=== PATIENT | male | born 1960 | race Caucasian/White ===

== ENCOUNTER 2018-10-04 04:30 | Emergency (ER) | payer BC, OTHER ==
[2018-10-04] MEDS ORDERED: Lidocaine Viscous Sol 2% 15 ml UD Cup ONE (04:56)
[2018-10-04] MEDS ORDERED: Mag-Al 1200 mg/1200 mg/30 ML UDCUP ONE (04:56)
[2018-10-04 05:32] LABS: #Basophils 0.1 thou/uL (0.0-0.2); #Eosinphils 0.2 thou/uL (0.0-0.7); #Lymphocytes 3.6 thou/uL (1.20-3.40); #Monocytes 0.9 thou/uL (0.11-0.59); %Basophils 0.7 % (0.0-1.0); %Eosinophils 1.7 % (0.0-10.0); %Lymphocytes 30.7 % (21.0-51.0); %Monocytes 7.6 % (0.0-10.0); %Neutrophils 59.3 % (42.0-75.0); Hemoglobin 13.7 g/dL (14.0-18.0); Mean Corpuscular HGB CONC 33.7 g/dL (32.0-36.0); Mean Corpuscular Hemoglobin 30.5 pg (27.0-31.0); Mean Corpuscular Volume 90.6 fL (78.0-98.0); Platelet Count 292 thou/uL (130-400); RBC Distribution Width 11.8 % (11.5-14.5); Red Blood Cell (RBC) Count 4.49 mill/uL (4.70-6.10); White Blood Cell (WBC) Count 11.8 thou/uL (4.8-10.8)
[2018-10-04 05:56] LABS: ALT (SGPT) 16 U/L (8-55); AST (SGOT) 15 U/L (5-34); Albumin 3.8 g/dL (3.5-5.0); Alkaline Phosphatase 69 U/L (40-150); Anion Gap 16 mmol/L (10-20); BUN (Urea Nitrogen) 17 mg/dL (8.4-25.7); Bilirubin, Total 0.3 mg/dL (0.2-1.2); CK (CPK) 199 U/L (30-200); Calc. Creatinine Clearance 0 mL/min (70-130); Calcium 9.4 mg/dL (7.8-10.44); Carbon Dioxide 21 mmol/L (22-29); Chloride 106 mmol/L (98-107); Estimated GFR-MDRD 78; Globulin 2.9 g/dL (2.4-3.5); Glucose 126 mg/dL (70-105); Potassium 4.6 mmol/L (3.5-5.1); Protein, Total 6.7 g/dL (6.0-8.3); Sodium 138 mmol/L (136-145)
[2018-10-04] MEDS ORDERED: Sucralfate 1 GM/10 ML UDCUP ONE (06:25)
--- NOTE | 2018-10-04 08:02 | RAD ---
EXAM: Chest one view: HISTORY: Chest pain for 2 days with worsening COMPARISON: 02/25/2010 FINDINGS: Heart size: Within normal limits. Lungs: Clear of acute process. No evidence for pneumonia, pleural effusion, acute edema, or pneumothorax, or other significant acute process. IMPRESSION: No significant acute intrathoracic disease. Stable chest.
--- NOTE | 2018-10-06 01:07 | EKG ---
Test Reason : CHEST PAIN Blood Pressure : / mmHG Vent. Rate : 072 BPM Atrial Rate : 072 BPM P-R Int : 144 ms QRS Dur : 142 ms QT Int : 390 ms P-R-T Axes : 015 014 -19 degrees QTc Int : 427 ms Normal sinus rhythm Non-specific intra-ventricular conduction block T wave abnormality, consider inferior ischemia Abnormal ECG Confirmed by STACY KING [id number]), metropolitan editor MARICRUZ LINO ([id number] on 10/06/2018 1:07:02 AM Referred By: Confirmed By:STACY KING
== END 2018-10-04 06:28 | disposition home or self-care (01) ==
LOC: ERS 04:30
DX: R07.89 Other chest pain (principal); E11.9 Type 2 diabetes mellitus without complications; I10 Essential (primary) hypertension; Z79.84 Long term (current) use of oral hypoglycemic drugs; Z79.899 Other long term (current) drug therapy
CPT/HCPCS: 36415; 71045; 80053; 82550; 84484; 85025; 93005

== ENCOUNTER 2019-04-10 15:51 | Outpatient (CLI) | payer BC ==
[2019-04-10 16:49] LABS: #Basophils 0.1 thou/uL (0.0-0.2); #Eosinphils 0.2 thou/uL (0.0-0.7); #Lymphocytes 4.5 thou/uL (1.20-3.40); %Eosinophils 1.7 % (0.0-10.0); %Lymphocytes 38.1 % (21.0-51.0); %Monocytes 8.3 % (0.0-10.0); Hemoglobin 15.7 g/dL (14.0-18.0); Mean Corpuscular HGB CONC 33.7 g/dL (32.0-36.0); Mean Corpuscular Hemoglobin 30.2 pg (27.0-31.0); Mean Corpuscular Volume 89.5 fL (78.0-98.0); Mean Platelet Volume 7.2 fL (7.4-10.4); Platelet Count 329 thou/uL (130-400); RBC Distribution Width 11.9 % (11.5-14.5); Red Blood Cell (RBC) Count 5.21 mill/uL (4.70-6.10); White Blood Cell (WBC) Count 11.8 thou/uL (4.8-10.8)
[2019-04-10 17:14] LABS: ALT (SGPT) 19 U/L (8-55); AST (SGOT) 12 U/L (5-34); Albumin 4.5 g/dL (3.5-5.0); Alkaline Phosphatase 78 U/L (40-110); Anion Gap 13 mmol/L (10-20); BUN (Urea Nitrogen) 13 mg/dL (8.4-25.7); Bilirubin, Total 0.5 mg/dL (0.2-1.2); Calc. Creatinine Clearance 0 mL/min (70-130); Calcium 9.8 mg/dL (7.8-10.44); Carbon Dioxide 25 mmol/L (22-29); Chloride 102 mmol/L (98-107); Estimated GFR-MDRD 80; Globulin 3.1 g/dL (2.4-3.5); Glucose 136 mg/dL (70-105); Potassium 4.3 mmol/L (3.5-5.1); Protein, Total 7.6 g/dL (6.0-8.3); Sodium 136 mmol/L (136-145)
== END 2019-04-10 15:52 | disposition home or self-care (01) ==
LOC: LABBT 15:51
PROVIDERS: ATTEND Surgery
DX: Z01.818 Encounter for other preprocedural examination (principal); K42.9 Umbilical hernia without obstruction or gangrene
CPT/HCPCS: 80053; 85025; 93005; 93010

== ENCOUNTER 2019-04-18 05:33 | Day surgery (SDC) | payer BC ==
[2019-04-10 16:08] VITALS: BMI 34.1
[2019-04-18] MEDS ORDERED: Bupivacaine PF 0.5% 30 ML VIAL ONE (06:50)
[2019-04-18] MEDS ORDERED: Lidocaine 1% w/Epinephrine 1:100K 20 ML VIAL ONE (06:50)
[2019-04-18] MEDS ORDERED: Fentanyl 100 MCG/2 ML VIAL ONE (07:42)
[2019-04-18] MEDS ORDERED: Rocuronium Bromide 10 MG/ML (10ML VIAL) ONE (12:34)
[2019-04-18] MEDS ORDERED: Glycopyrrolate 0.2 MG/ML 5 ML SYRINGE ONE (12:34)
[2019-04-18] MEDS ORDERED: Lidocaine 1% PF 5 ML VIAL ONE (12:34)
[2019-04-18] MEDS ORDERED: Dexamethasone 20 MG/5 ML VIAL ONE (12:34)
[2019-04-18] MEDS ORDERED: Ketorolac Tromethamine 30 MG/ML VIAL ONE (12:34)
[2019-04-18] MEDS ORDERED: Ondansetron PF 4 MG/2 ML Vial ONE (12:34)
[2019-04-18] MEDS ORDERED: PROPOFOL 200 MG/20 ML VIAL ONE (12:34)
--- NOTE | 2019-04-22 12:15 | OP ---
DATE OF PROCEDURE: 04/18/2019 PREOPERATIVE DIAGNOSIS: Umbilical hernia. PROCEDURE PERFORMED: Umbilical hernia repair with mesh. INDICATIONS: The patient is a 58-year-old male, with a painful bulge in his umbilicus, found to have hernia. FINDINGS: 1.5 cm defect, 6 cm mesh used. DESCRIPTION OF PROCEDURE: After informed consent was obtained, the patient was taken to the operating room, given general mask anesthesia, placed in supine position. Abdomen was prepped and draped in usual fashion. Local anesthesia was infiltrated subcutaneously and deep. A subumbilical incision was performed. Subcu divided sharply. The umbilical skin was dissected off the hernia sac circumferentially down to the fascia. Hernia sac excised. The contents reduced. Reduction was maintained utilizing a medium size PROCEED mesh patch, which was hydrated, inserted intra-abdominally and then spread out, sutured to the abdominal wall with interrupted 0 Ethibond suture. The wings were excised. The umbilical skin was sutured to the fascia with interrupted 3-0 Vicryl to restore umbilical contour. Skin closed with interrupted 4-0 Rapide. Steri-Strips applied. Sterile bandage applied. The patient tolerated the procedure well, transferred to Recovery in good condition. Sponge and needle count verified correct x2. Job ID: [id number]
== END 2019-04-18 11:48 | disposition home or self-care (01) ==
LOC: SDC 05:33
PROVIDERS: ATTEND Surgery
PROC: 0WUF0JZ Supplement Abdominal Wall with Synthetic Substitute, Open Approach (ICD-10-PCS; principal; 2019-04-18)
DX: K42.9 Umbilical hernia without obstruction or gangrene (principal); I10 Essential (primary) hypertension; Z79.84 Long term (current) use of oral hypoglycemic drugs; Z79.899 Other long term (current) drug therapy
CPT/HCPCS: J0690; J1100; J1885; J2001; J2405; J2704; J3010; S0020